=== PATIENT | female | born 1990 | race Caucasian/White ===

== ENCOUNTER 2022-07-27 03:18 | Emergency (ER) | payer OTHER ==
[~2022-07-27] VITALS: Ht 172.7 cm; Wt 163.3 kg
[2022-07-27 03:33] VITALS: BP_SYST 122
[2022-07-27] MEDS ORDERED: KETOROLAC TROMETHAMINE 30 MG VIAL IM ONE (03:45)
[2022-07-27 04:44] VITALS: BP_SYST 122
== END 2022-07-27 04:46 | disposition home or self-care (01) ==
LOC: SED 03:18
DX: S80.812A Abrasion, left lower leg, initial encounter (principal); I10 Essential (primary) hypertension; Z79.899 Other long term (current) drug therapy; V89.2XXA Person injured in unspecified motor-vehicle accident, traffic, initial encounter; Y93.89 Activity, other specified; Y92.89 Other specified places as the place of occurrence of the external cause; Y99.8 Other external cause status
CPT/HCPCS: 99283; 96372; J1885